=== PATIENT | female | born 1980 | race Caucasian/White ===

== ENCOUNTER 2016-06-19 21:03 | Emergency (ER) | payer BC ==
--- NOTE | 2016-06-19 21:10 | PDOC ---
[id number] is a 35 year old female with a past medical hx of anxiety who presents to the ED via EMS for evaluation of 1 episode of seizure-like activity at 19:30 this evening. Per patient's friend, she went to get food out of the refrigerator when her eyes rolled into the back of her head and she started to have body tremors. The friend reports she caught her as she was falling to the ground and notes she turned blue and was unconscious. The patient's friend states she was unconscious for approximately 30 seconds. The friend notes she then called 911. The patient reports the last thing she remembers was being in the kitchen. She does not remember this episode of seizure like activity and recalls she felt very nauseous afterwards. She states she then vomited up her dinner. The patient reports she was in her usual state of health up until this evening. She denies any recent fever, nausea, diarrhea prior to this episode. The patient reports she has some waves of nausea but otherwise feels completely fine while in the ED. The patient denies chest pain, SOB, abdominal pain, headache <Minerva Shah - Last Filed: 06/19/16 21:49> <Shirley Londono - Last Filed: 06/20/16 06:40> - General Chief Complaint: Seizure Stated Complaint: SEIZURE Time Seen by Provider: 06/19/16 21:10 Past History <Minerva Shah - Last Filed: 06/19/16 21:49> - Past Medical History Anemia: No Asthma: No Cancer: No HTN: No Psychiatric Problems: Yes - Surgical History Abdominal Surgery: No Appendectomy: No Cardiac Surgery: No - Psycho/Social/Smoking Cessation Hx Anxiety: No Suicidal Ideation: No Smoking History: Former smoker Have you smoked in the past 12 months: Yes Number of Cigarettes Smoked Daily: 1 If you are a former smoker, when did you quit?: 1 YEAR AGO 'Breaking Loose' booklet given: 12/05/15 Hx Alcohol Use: No Drug/Substance Use Hx: No Substance Use Type: None <Shirley Londono - Last Filed: 06/20/16 06:40> - Past Medical History Allergies/Adverse Reactions: Allergies Allergy/AdvReac Type Severity Reaction Status Date / Time No Known Allergies Allergy Verified 06/19/16 21:06 Home Medications: Ambulatory Orders Fluoxetine HCl [Prozac -] 40 mg PO DAILY 12/12/14 Alprazolam [Xanax] 1 mg PO PRN PRN 06/19/16 Review of Systems - Review of Systems Able to Perform ROS?: Yes Comments:: 06/19/16 21:49 CONSTITUTIONAL: Absent: fever, no chills, no fatigue EYES: Absent: visual changes ENT: Absent: ear pain, no sore throat CARDIOVASCULAR: Absent: chest pain, no palpitations RESPIRATORY: Absent: cough, no SOB GI: Absent: abdominal pain, no nausea, no vomiting, no constipation, no diarrhea GENITOURINARY: Absent: dysuria, no frequency, no hematuria MUSCULOSKELETAL: Absent: back pain, no arthralgia, no myalgia SKIN: Absent: rash NEURO: +Loss of consciousness, seizure. Absent: headache <Minerva Shah - Last Filed: 06/19/16 21:49> *Physical Exam - Vital Signs Last Vital Signs Temp Pulse Resp BP Pulse Ox 97.9 F 82 18 137/91 100 06/19/16 21:10 06/19/16 21:10 06/19/16 21:10 06/19/16 21:10 06/19/16 21:10 <Minerva Shah - Last Filed: 06/19/16 21:49> - Physical Exam Comments: GENERAL: The patient is awake, alert, and fully oriented, in no acute distress. Vital signs as noted. HEAD: Normal with no signs of trauma. EYES: Pupils equal, round and reactive to light, extraocular movements intact, sclera anicteric, conjunctiva clear with no pallor. ENT: Dry mucous membranes. No evidence of tongue or other oral trauma; Ears normal, nares patent, oropharynx clear without exudates. NECK: Normal range of motion, supple without lymphadenopathy, JVD, or masses. LUNGS: Breath sounds equal, clear to auscultation bilaterally. No wheeze/ crackles. HEART: Regular rate and rhythm, normal S1 and S2 without murmur or rub. ABDOMEN: Soft/nontender/nondistended. BS wnl. No guarding or rebound. No palpable masses. No hepatosplenomegaly. EXTREMITIES: Normal range of motion, no edema. No clubbing or cyanosis. No cords, erythema, or tenderness. NEUROLOGICAL: Cranial nerves II through XII grossly intact. Motor 5/5; no sensory deficits; finger to nose normal. Normal speech, normal gait. PSYCH: Normal mood, normal affect. SKIN: Warm, Dry, normal turgor, no rashes or lesions noted. <Shirley Londono - Last Filed: 06/20/16 06:40> ED Treatment Course - LABORATORY CBC & Chemistry Diagram: 06/19/16 21:55 06/19/16 21:55 <Shirley Londono - Last Filed: 06/20/16 06:40> Medical Decision Making - Medical Decision Making Documentation has been prepared under my direction and personally reviewed by me in its entirety. I attest that this documented accurately reflects all work, treatment, procedures and medical decision making performed by me. As noted above, is 35-year-old woman with a history of anxiety/depression is brought into the emergency room by a family/friends with history of apparent generalized seizure. Patient has no previous history of seizure activity. According to the patient's friend, as the patient was standing in her kitchen, she fell backwards and had tonic-clonic movements; this lasted approximately 30 seconds and patient was semiconscious for some time after this. She had no incontinence and did not injure herself obviously during the seizure. The patient has no recall of this; she recalls feeling nauseated and vomiting similar digested food after the episode. According to family/friends, 911 was called and patient became alarmed when firefighters arrived, not recognizing that they were first responders to the medical call. According to the patient, she was unaware that her friend called 911 and she had a panic attack, thinking the firefighters were intruders. EMS then arrived and suggested that patient be transported to the hospital but she refused. Family/friends persuaded patient to come to the hospital for evaluation. She is currently alert, oriented and calm, expressing no complaints. Patient states that she is on Prozac daily and believes she has taken in the last 24 hours. She also has been prescribed Adderall by her psychiatrist, Dr. Yung Stephenson ([place]). She has taken her Adderall today. She denies taking any other medications or recreational drugs. There has been no alcohol use and denies any new supplements or vitamins. Patient denies any suicidal/homicidal ideation She states she is under some increased stress recently since she is breaking up with her boyfriend and has an 11 month old child at home Physical exam as noted above. Noncontrast head CT shows no abnormality; no evidence of acute bleed/masses/ contusion or fracture. Laboratory evaluation notable for white blood cell count of 18,500; patient states that she has history of having elevated WBC count; when she was seen here in March 2016 with gastroenteritis, WBC count was 32,000. There is evidence for mild prerenal azotemia with BUN of 17 and a creatinine of 0.7. 1 L normal saline intravenously was given to the patient during her stay here in the ER. Urine tox screen shows positive opiate; all other entities are negative. Patient was asked about this; she denies any narcotic use. Clinical presentation most consistent with apparent generalized seizure activity of unclear etiology. During the patient's time here she was completely asymptomatic with clear sensorium. Since there is no evidence of etiology requiring inpatient treatment, the patient will be discharged. She should follow-up in the very near future (within 2-3 days) with neurology.She should refrain from driving until seen by neurologist. She has no previous neurologist and referral information for Dr. Licea was given to her. She should also contact her psychiatrist and follow-up within the next several days. Patient also has a general doctor in [facility] whom she should see within the next week. Meanwhile, she should return to the emergency room if she has any fever/headache or neck pain/further seizure activity 06/20/16 06:39 <Shirley Londono - Last Filed: 06/20/16 06:40> *DC/Admit/Observation/Transfer - Attestations Scribe Attestion: 06/19/16 21:50 Documentation prepared by Minerva Shah, acting as emergency medical services coordinator for Shirley Londono MD/DO. <Minerva Shah - Last Filed: 06/19/16 21:49> <Shirley Londono - Last Filed: 06/20/16 06:40> Diagnosis at time of Disposition: New onset seizure - Discharge Dispostion Disposition: HOME Condition at time of disposition: Stable - Referrals Referrals: Chapin Licea MD [Staff Physician] - 2 Days - Patient Instructions Printed Discharge Instructions: DI for Seizure Disorder -- Adult Additional Instructions: rest, avoid strenuous activity until seen by neurologist drink plenty of water followup with Dr Licea(Neurology group) within 2-3 days followup with your general doctor as discussed continue medication as prescribed return to ER as needed
[2016-06-19 21:14] VITALS: BP 137/91; PULSE 82; TEMP 97.9; BMI 22.2
[2016-06-19] MEDS ORDERED: ACETAMINOPHEN 325 MG TABLET (FP) ONE (22:10)
[2016-06-19] MEDS ORDERED: SODIUM CHLORIDE 1,000 ML IV STA (22:10)
[2016-06-19 22:17] LABS: BASOPHIL 0.3 % (0-2.0); EOSINOPHIL 0.7 % (0-4.5); MCH 30.4 pg (25.7-33.7); MCHC 35.8 g/dl (32.0-36.0); MEAN PLT VOLUME 7.7 fl (7.5-11.1); NEUTROPHILS 86.4 % (42.8-82.8); PLATELET COUNT 325 K/MM3 (134-434); RDW 11.8 % (11.6-15.6); WHITE BLOOD COUNT 18.5 K/mm3 (4.0-10.0)
[2016-06-19 22:23] LABS: ALBUMIN 4.5 g/dl (3.5-5.0); ALK PHOS 44 U/L (32-92); ANION GAP 8 (8-16); BILIRUBIN,TOTAL 0.3 mg/dl (0.2-1.0); CALCIUM 9.4 mg/dl (8.4-10.2); CO2 27 mmol/L (22-28); CREATININE 0.7 mg/dl (0.6-1.3); GLUCOSE,RANDOM 106 mg/dl (74-106); SGOT/AST 16 U/L (10-42); SGPT/ALT 14 U/L (10-40); TOT PROT 7.1 g/dl (6.4-8.3)
[2016-06-19 22:54] LABS: PH,URINE 5.5 (4.5-8); URINE APPEARANCE Clear; URINE BILIRUBIN Negative (NEGATIVE); URINE BLOOD Trace-intact (NEGATIVE); URINE GLUCOSE (UA) Negative (NEGATIVE); URINE KETONE 2+ (NEGATIVE); URINE LEUK ESTERASE Negative (NEGATIVE); URINE NITRITE Negative (NEGATIVE); URINE PROTEIN Trace (NEGATIVE); URINE UROBILINOGEN 0.2 E.U/dl (0.2-1.0)
[2016-06-19 22:55] LABS: URINE COLOR YELLOW
[2016-06-19] MEDS ORDERED: LOPERAMIDE HCL 2 MG CAPSULE PO ONE (23:35)
[2016-06-20 00:11] LABS: URINE MARIJUANA THC NEGATIVE ng/ml (CUTOFF=50)
== END 2016-06-20 00:29 | disposition home or self-care (01) ==
LOC: FER 21:03
PROC: 3E0337Z Introduction of Electrolytic and Water Balance Substance into Peripheral Vein, Percutaneous Approach (ICD-10-PCS; principal; 2016-06-19)
DX: G40.89 Other seizures (principal); Z87.891 Personal history of nicotine dependence; F41.9 Anxiety disorder, unspecified
CPT/HCPCS: 36415; 70450-TC; 80053; 80307; 81003; 84703; 85025; 99283-25

== ENCOUNTER 2016-10-11 11:48 | Emergency (ER) | payer BC ==
--- NOTE | 2016-10-11 11:56 | PDOC ---
History of Present Illness - General Chief Complaint: Pain, Acute Stated Complaint: LOWER ABDOMINAL PAIN Time Seen by Provider: 10/11/16 11:54 History Source: Patient, Old Records Exam Limitations: No Limitations - History of Present Illness Initial Comments: 10/11/16 12:09 35-year-old female with history of depression presents to the emergency department with 2 day history of left lower quadrant pain and fever. The patient describes the pain is sharp and constant that is worse when she moves and sits forward. She has never had this pain before. Her fever has been as high as 10 2F and she is taken ibuprofen at 11 AM this morning. She denies dysuria, hematuria, increased urinary frequency. She denies vaginal discharge or bleeding. Her last menstrual period was 2 weeks ago. She denies nausea, vomiting, diarrhea. She has a nonproductive cough. Past History - Past Medical History Allergies/Adverse Reactions: Allergies Allergy/AdvReac Type Severity Reaction Status Date / Time No Known Allergies Allergy Verified 06/19/16 21:06 Home Medications: Ambulatory Orders Fluoxetine HCl [Prozac -] 40 mg PO DAILY 12/12/14 Alprazolam [Xanax] 1 mg PO PRN PRN 06/19/16 Anemia: No Asthma: No Cancer: No HTN: No Psychiatric Problems: Yes - Surgical History Abdominal Surgery: No Appendectomy: No Cardiac Surgery: No - Psycho/Social/Smoking Cessation Hx Anxiety: No Suicidal Ideation: No Smoking History: Former smoker Have you smoked in the past 12 months: Yes Number of Cigarettes Smoked Daily: 1 If you are a former smoker, when did you quit?: 1 YEAR AGO 'Breaking Loose' booklet given: 12/05/15 Hx Alcohol Use: No Drug/Substance Use Hx: No Substance Use Type: None Review of Systems - Review of Systems Able to Perform ROS?: Yes Is the patient limited Somali proficient: No Constitutional: Yes: Symptoms Reported, See HPI, Fever HEENTM: No: Symptoms Reported Respiratory: Yes: Cough Cardiac (ROS): No: Symptoms Reported ABD/GI: Yes: See HPI : No: Symptoms Reported Musculoskeletal: No: Symptoms Reported Integumentary: No: Symptoms Reported *Physical Exam - Physical Exam Comments: 10/11/16 12:12 GENERAL: Well developed, well nourished. Awake and alert. No acute distress. HEENT: Normocephalic, atraumatic. PERRLA, EOMI. No conjunctival pallor. Sclera are non- icteric. Moist mucous membranes. Oropharynx is clear. NECK: Supple. Full ROM. No JVD. No lymphadenopathy. CARDIOVASCULAR: Tachycardic and regular. No murmurs, rubs, or gallops. Distal pulses are 2+ and symmetric. PULMONARY: No evidence of respiratory distress. Lungs clear to auscultation bilaterally. No wheezing, rales or rhonchi. ABDOMINAL: Soft. Non-tender. Non-distended. No rebound or guarding. No organomegaly. Normoactive bowel sounds. MUSCULOSKELETAL Normal range of motion at all joints. No bony deformities or tenderness. No CVA tenderness. EXTREMITIES: No cyanosis. No clubbing. No edema. No calf tenderness. SKIN: Warm and dry. Normal capillary refill. No rashes. No jaundice. NEUROLOGICAL: Alert, awake, appropriate. Cranial nerves 2-12 intact. Grossly non-focal exam. PSYCHIATRIC: Cooperative. Good eye contact. Appropriate mood and affect. PELVIC: external genitalia is unremarkable. Speculum exam reveals an IUD string. There is no vaginal discharge or bleeding. Bimanual exam is significant for left suprapubic tenderness but no CMT. ED Treatment Course - LABORATORY CBC & Chemistry Diagram: 10/11/16 12:20 10/11/16 12:20 Medical Decision Making - Medical Decision Making 10/11/16 12:11 35-year-old female with h/o depression presents to the emergency Department with complaints of left lower quadrant pain and fever since yesterday. She is febrile in the emergency department Differential diagnosis includes but is not limited to: Early pyelonephritis, urinary tract infection, infected kidney stone , diverticulitis/diverticulosis, ovarian torsion. Plan: 1. Labs 2. Urine analysis 3. IV fluids for hydration 4. Pelvic ultrasound 5. Observe and reevaluate 10/11/16 17:04 Addendum: All labs were reviewed and are noted in the EMR. The urine analysis had 2 red blood cells but no nitrites or leukoesterase. The white blood cell count was normal. I reevaluated the patient and found that she continued to have lower abdominal tenderness on the left is quadrant therefore a pelvic ultrasound was performed which was normal. Because the patient continued to have pain I obtained a CT scan of the abdomen and pelvis without contrast that showed questionable concentric thickening of the sigmoid colon in the left lower abdomen. The patient is hungry and wants to eat. She is now afebrile and is feeling improved. If she tolerates food I will discharge her home and have advised her to follow-up with her primary care physician. I've also advised to return to the emergency department if her symptoms persist, worsen, or new symptoms arise. *DC/Admit/Observation/Transfer Diagnosis at time of Disposition: LLQ pain, Fever - Discharge Dispostion Disposition: HOME Condition at time of disposition: Stable Admit: No - Patient Instructions Printed Discharge Instructions: DI for Abdominal Pain-Adult Additional Instructions: Please follow-up with your primary care physician. He may take ibuprofen or Tylenol as needed for fever or pain. Return to the emergency department if your symptoms persist, worsen, or new symptoms arise.
[2016-10-11] MEDS ORDERED: ACETAMINOPHEN 325 MG TABLET (FP) PO ONE (12:02)
[2016-10-11] MEDS ORDERED: SODIUM CHLORIDE 1,000 ML IV STA ×2 (12:02→13:21)
[2016-10-11] MEDS ORDERED: ONDANSETRON 4 MG/2 ML VIAL IVPUSH ONE (12:02)
[2016-10-11 12:08] VITALS: BMI 21.2
[2016-10-11 12:43] LABS: BASOPHIL 2.7 % (0-2.0); EOSINOPHIL 0.8 % (0-4.5); MEAN CELL VOLUME 86.3 fl (80-96); MEAN PLT VOLUME 7.6 fl (7.5-11.1); NEUTROPHILS 80.2 % (42.8-82.8); PLATELET COUNT 264 K/MM3 (134-434); RDW 12.3 % (11.6-15.6); WHITE BLOOD COUNT 7.6 K/mm3 (4.0-10.8)
[2016-10-11 13:23] LABS: ALBUMIN 3.8 g/dl (3.5-5.0); ALK PHOS 44 U/L (32-92); ANION GAP 7 (8-16); BILIRUBIN,TOTAL 0.5 mg/dl (0.2-1.0); CALCIUM 8.7 mg/dl (8.4-10.2); CO2 24 mmol/L (22-28); CREATININE 0.7 mg/dl (0.6-1.3); GLUCOSE,RANDOM 124 mg/dl (74-106); MAGNESIUM 1.6 mg/dL (1.8-2.4); PHOSPHOROUS 2.9 mg/dl (2.5-4.6); SGOT/AST 17 U/L (10-42); SGPT/ALT 15 U/L (10-40); TOT PROT 6.5 g/dl (6.4-8.3)
[2016-10-11] MEDS ORDERED: KETOROLAC TROMETHAMINE 30 MG/1 ML VIAL IVPUSH ONE (13:28)
[2016-10-11] MEDS ORDERED: KETOROLAC TROMETHAMINE 30 MG/1 ML VIAL ONE (13:34)
[2016-10-11 13:44] LABS: URINE APPEARANCE Clear; URINE BILIRUBIN Negative (NEGATIVE); URINE GLUCOSE (UA) Negative (NEGATIVE); URINE KETONE Negative (NEGATIVE); URINE LEUK ESTERASE Negative (NEGATIVE); URINE NITRITE Negative (NEGATIVE); URINE PROTEIN Trace (NEGATIVE); URINE UROBILINOGEN 0.2 E.U/dl (0.2-1.0)
[2016-10-11 13:49] LABS: URINE BLOOD 2+ (NEGATIVE); URINE COLOR YELLOW
[2016-10-11 15:01] LABS: URINE WBC 0-2 (3-5)
[2016-10-11 15:03] LABS: URINE MUCUS 1+
[2016-10-11 17:14] VITALS: BP 106/66; PULSE 90; TEMP 98.1
== END 2016-10-11 17:29 | disposition home or self-care (01) ==
LOC: FER 11:48
PROC: 3E0333Z Introduction of Anti-inflammatory into Peripheral Vein, Percutaneous Approach (ICD-10-PCS; principal; 2016-10-11)
PROC: 3E033GC Introduction of Other Therapeutic Substance into Peripheral Vein, Percutaneous Approach (ICD-10-PCS; 2016-10-11)
PROC: 3E0337Z Introduction of Electrolytic and Water Balance Substance into Peripheral Vein, Percutaneous Approach (ICD-10-PCS; 2016-10-11)
DX: R10.32 Left lower quadrant pain (principal); R50.9 Fever, unspecified; F32.9 Major depressive disorder, single episode, unspecified
CPT/HCPCS: 36415; 74176-TC; 76830-TC; 80053; 81003; 81015; 83690; 83735; 84100; 84703; 85025; 87086; 99283-25

== ENCOUNTER 2019-03-20 18:44 | Emergency (ER) | payer BC ==
[2019-03-20 18:55] VITALS: BP 102/67; PULSE 89; TEMP 98.1; BMI 24.2
[2019-03-20] MEDS ORDERED: ONDANSETRON 4 MG/2 ML VIAL IVPB ONE (19:22)
[2019-03-20] MEDS ORDERED: SODIUM CHLORIDE 1,000 ML IV ONE ×3 (19:22→21:27)
[2019-03-20] MEDS ORDERED: ACETAMINOPHEN 1000 MG/100 ML VIAL (NON FORMULARY) IVPB ONE (19:23)
[2019-03-20] MEDS ORDERED: ONDANSETRON 4 MG/2 ML VIAL ONE (19:41)
[2019-03-20] MEDS ORDERED: ACETAMINOPHEN INJECTION 100 ML IVPB ONE (19:41)
[2019-03-20 19:52] LABS: BASO % 0.4 % (0-2.0); EOS % 3.7 % (0-4.5); HEMOGLOBIN 13.2 GM/dl (10.7-15.3); LYMPH % 21.8 % (8-40); MCH 29.9 pg (25.7-33.7); MEAN CELL VOLUME 88.1 fl (80-96); MEAN PLT VOLUME 7.2 fl (7.5-11.1); MONO % 6.6 % (3.8-10.2); NEUT % 67.5 % (42.8-82.8); PLATELET COUNT 349 K/MM3 (134-434); RBC 4.42 M/mm3 (3.60-5.2); RDW 11.1 % (11.6-15.6); WHITE BLOOD COUNT 5.7 K/mm3 (4.0-10.8)
[2019-03-20 20:02] LABS: ALBUMIN 3.6 g/dl (3.4-5.0); BILIRUBIN,TOTAL 0.2 mg/dl (0.2-1); CALCIUM 8.4 mg/dl (8.5-10); CREATININE 0.7 mg/dl (0.55-1.3); POTASSIUM 3.3 mmol/L (3.5-5.1); TOT PROT 6.3 g/dl (6.4-8.2)
--- NOTE | 2019-03-20 20:26 | PDOC ---
Documentation entered by Khushbu Ramos SCRIBE, acting as scribe for Mansoor Stover MD. Mansoor Stover MD: This documentation has been prepared by the [email or web address], Khushbu Ramos SCRIBE, under my direction and personally reviewed by me in its entirety. I confirm that the documentation accurately reflects all work , treatment, procedures, and medical decision making performed by me. History of Present Illness - General Chief Complaint: Vomiting/Diarrhea Stated Complaint: VOMITING/DIARRHEA Time Seen by Provider: 03/20/19 19:07 History Source: Patient Exam Limitations: No Limitations - History of Present Illness Initial Comments: 03/20/19 19:37 The patient is a 38-year-old female who presents to the emergency department with 3 days of nausea, vomiting, and diarrhea. The patient reports on Tuesday she had an onset of nausea, vomiting, diarrhea, and a fever, which carried onto Tuesday, without relief. The patient reports today she had episodes of diarrhea, but denies vomiting or fever. The patient reports associated symptoms of fatigue , decreased PO intake, decreased urine output, nausea, and a headache. Denies recent travel. Denies sick contact, but the patient reports her father currently has similar symptoms. 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 MEDICATIONS: reviewed ALLERGIES: As per nursing notes Review of system: General: +fatigue. No fevers or chills, no weakness, no weight loss HEENT: No change in vision. No sore throat,. No ear pain CardioVascular: No chest pain or shortness of breath Respiratory:No cough, or wheezing. Gastrointestinal: +nausea, diarrhea, and abdominal pain. Decreased PO intake. No vomiting today or constipation. No rectal bleeding. Genitourinary: +decreased urine output. No dysuria, hematuria, or frequency Musculoskeletal: No joint or muscle pain or swelling Neurologic: +headache. No vertigo, dizziness or loss of consciousness Psychiatric: nor depression Skin: No rashes or easy bruising Endocrine: no increased thirst or abnormal weight change Allergic: no skin or latex allergy All other systems reviewed and normal Physical exam: General: Well-nourished well-developed individual, no acute distress HEENT: Throat: Normal, tonsils normal, no erythema or exudate Neck: Supple, no meningeal signs, no lymphadenopathy Eyes :Pupils equal reactive and round, extraocular motion intact Chest: Nontender to palpation Cardiac: S1-S2 normal, regular rate and rhythm, no murmurs rubs or gallops Respiratory: Lungs clear to auscultation bilateral Abdomen: +Mild tenderness on palpation of the periumbilical, no guarding or rebound. Extremities: Warm, dry, no cyanosis, clubbing, or edema Skin: No rashes Neuro: Alert and oriented x3, nonfocal exam, grossly intact, normal gait Psych: Normal mood and affect 03/20/19 19:46 03/20/19 20:23 Assessment and plan: This is a 38-year-old female who comes in complaining of nausea vomiting and diarrhea. Patient had fever initially with nausea and vomiting and diarrhea however today is only had diarrhea. Patient comes in because she feels very dehydrated. Patient symptoms are improving with time. Patient clinically looks dry. Patient will be hydrated and basic labs sent CBC and comp. Patient's blood work was normal, she feels much better was able to walk to the bathroom and urinate at 2200 hrs. Patient given a p.o. challenge no further vomiting Patient discharged home will follow-up with her primary care doctor Past History - Past Medical History Allergies/Adverse Reactions: Allergies Allergy/AdvReac Type Severity Reaction Status Date / Time No Known Allergies Allergy Verified 03/20/19 18:45 Home Medications: Ambulatory Orders Fluoxetine HCl [Prozac -] 80 mg PO DAILY 12/12/14 Dexmethylphenidate HCl [Focalin] 10 mg PO DAILY 03/20/19 Gabapentin [Neurontin] 900 mg PO DAILY 03/20/19 Lurasidone HCl [Latuda] 20 mg PO DAILY 03/20/19 Ondansetron [Zofran *Odt*] 8 mg SL TID #12 od.tablet 03/20/19 Anemia: No Asthma: No Cancer: No COPD: No HTN: No Psychiatric Problems: Yes - Surgical History Abdominal Surgery: No Appendectomy: No Cardiac Surgery: No - Reproductive History (#): 1 Para: 1 - Psycho Social/Smoking Cessation Hx Smoking History: Never smoked Have you smoked in the past 12 months: Yes Number of Cigarettes Smoked Daily: 1 If you are a former smoker, when did you quit?: 1 YEAR AGO 'Breaking Loose' booklet given: 12/05/15 Hx Alcohol Use: Yes (OCASIONAL) Drug/Substance Use Hx: No Substance Use Type: None *Physical Exam - Vital Signs Last Vital Signs Temp Pulse Resp BP Pulse Ox 98.1 F 89 18 102/67 98 03/20/19 18:45 03/20/19 18:45 03/20/19 18:45 03/20/19 18:45 03/20/19 18:45 ED Treatment Course - LABORATORY CBC & Chemistry Diagram: 03/20/19 19:40 03/20/19 19:40 - ADDITIONAL ORDERS Additional order review: Laboratory Results 03/20/19 03/20/19 19:40 19:40 Sodium 138 Potassium 3.3 L Chloride 105 Carbon Dioxide 28 Anion Gap 5 L BUN 16.0 Creatinine 0.7 Est GFR (CKD-EPI)AfAm 129.19 Est GFR (CKD-EPI)NonAf 111.47 Random Glucose 94 Calcium 8.4 L Magnesium 2.0 Total Bilirubin 0.2 AST 20 ALT 19 Alkaline Phosphatase 53 Total Protein 6.3 L Albumin 3.6 03/20/19 19:40 RBC 4.42 MCV 88.1 MCHC 34.0 RDW 11.1 L MPV 7.2 L Neutrophils % 67.5 Lymphocytes % 21.8 Monocytes % 6.6 Eosinophils % 3.7 Basophils % 0.4 - Medications Given in the ED: ED Medications Discontinued Medications Generic Name Dose Route Start Last Admin Trade Name Freq PRN Reason Stop Dose Admin Acetaminophen 1,000 mg 03/20/19 19:23 03/20/19 19:56 Ofirmev Injection - IVPB 03/20/19 19:24 1,000 mg ONCE ONE Administration Sodium Chloride 1,000 mls @ 1,000 mls/hr 03/20/19 19:22 03/20/19 19:39 Normal Saline - IV 03/20/19 20:21 1,000 mls/hr .Q1H ONE Administration Ondansetron HCl 8 mg 03/20/19 19:22 03/20/19 19:46 Zofran Injection IVPB 03/20/19 19:23 8 mg ONCE ONE Administration Discharge - Discharge Information Problems reviewed: Yes Clinical Impression/Diagnosis: Nausea vomiting and diarrhea Condition: Stable Disposition: HOME - Admission No - Additional Discharge Information Prescriptions: Ondansetron [Zofran *Odt*] 8 mg SL TID #12 od.tablet - Follow up/Referral - Patient Discharge Instructions Additional Instructions: Clear liquids only for the next 6 hours.. After that if you have had no further vomiting you may have bananas, rice, applesauce, or toast. If no further vomiting for another 8 hours you may have regular food. If you vomit again then nothing to eat or drink for 2 hours. then start back with the clear liquids. Return to the emergency department immediately with ANY new, persistent or worsening symptoms. You MUST call and follow up with your doctor tomorrow if not better. Please make sure your doctor reviews the results of your emergency evaluation. Return to the emergency department immediately with ANY new, persistent or worsening symptoms. Continue any medications as previously prescribed by your physician. . Please make sure your doctor reviews the results of your emergency evaluation. Thank you for coming to the Emergency Department today for your care. It was a pleasure to see you today. Please note that your evaluation is INCOMPLETE until you follow-up with your doctor. - Post Discharge Activity
[2019-03-20] MEDS ORDERED: POTASSIUM CHLORIDE TABS 20 MEQ TABLET.ER (FP) PO ONE ×2 (21:17→21:21)
== END 2019-03-20 22:32 | disposition home or self-care (01) ==
LOC: FER 18:44
PROC: 3E033NZ Introduction of Analgesics, Hypnotics, Sedatives into Peripheral Vein, Percutaneous Approach (ICD-10-PCS; principal; 2019-03-20)
PROC: 3E033GC Introduction of Other Therapeutic Substance into Peripheral Vein, Percutaneous Approach (ICD-10-PCS; 2019-03-20)
PROC: 3E0337Z Introduction of Electrolytic and Water Balance Substance into Peripheral Vein, Percutaneous Approach (ICD-10-PCS; 2019-03-20)
DX: R11.2 Nausea with vomiting, unspecified (principal); R19.7 Diarrhea, unspecified; Z87.891 Personal history of nicotine dependence; F99 Mental disorder, not otherwise specified
CPT/HCPCS: 36415; 80053; 83690; 83735; 85025; 99282-25; J0131; J7030

== ENCOUNTER 2019-04-18 14:06 | Emergency (ER) | payer BC ==
[2019-04-18 14:32] VITALS: BMI 24.2
[2019-04-18] MEDS ORDERED: ONDANSETRON 4 MG/2 ML VIAL IVPUSH ONE (14:55)
[2019-04-18] MEDS ORDERED: SODIUM CHLORIDE 1,000 ML IV STA ×2 (14:55→16:35)
--- NOTE | 2019-04-18 14:55 | PDOC ---
History of Present Illness - General Chief Complaint: Cold Symptoms Stated Complaint: I HAVE THE FLU Time Seen by Provider: 04/18/19 14:31 History Source: Patient Exam Limitations: No Limitations - History of Present Illness Initial Comments: 04/18/19 14:58 38 yo F with no past medical history presenting to the emergency department with worsening flu symptoms since diagnosis. 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 She states since then she used tamiflu which worsened her nausea and has had vomiting episodes daily with difficulty retaining fluids. Per the patient, she has diffuse body aches and endorses the following: fevers, nausea, headache, and throat pain. Last took tylenol 1 gram at 10 am. She was advised by her employer (the ENT physician) to present to the emergency department for rehydration. Denies the following: chest pain, SOB, abdominal pain, dysuria, hematuria, diarrhea, constipation, hematochezia, and leg swelling. Allergies: NKDA Past History - Past Medical History Allergies/Adverse Reactions: Allergies Allergy/AdvReac Type Severity Reaction Status Date / Time No Known Allergies Allergy Verified 04/18/19 14:33 Home Medications: Ambulatory Orders Fluoxetine HCl [Prozac -] 80 mg PO DAILY 12/12/14 Dexmethylphenidate HCl [Focalin] 10 mg PO DAILY 03/20/19 Gabapentin [Neurontin] 300 mg PO TID 03/20/19 Lurasidone HCl [Latuda] 20 mg PO DAILY 03/20/19 Ondansetron [Zofran *Odt*] 4 mg SL TID PRN #15 od.tablet 04/18/19 Anemia: No Asthma: No Cancer: No COPD: No HTN: No Psychiatric Problems: Yes - Surgical History Abdominal Surgery: No Appendectomy: No Cardiac Surgery: No - Reproductive History (#): 1 Para: 1 - Psycho Social/Smoking Cessation Hx Smoking History: Former smoker Have you smoked in the past 12 months: Yes Number of Cigarettes Smoked Daily: 1 If you are a former smoker, when did you quit?: 1 YEAR AGO Information on smoking cessation initiated: No 'Breaking Loose' booklet given: 12/05/15 Hx Alcohol Use: No Drug/Substance Use Hx: No Substance Use Type: None Review of Systems - Review of Systems Able to Perform ROS?: Yes Is the patient limited Hebrew proficient: No Constitutional: Yes: Fever, Malaise, Weakness. No: Chills, Diaphoresis HEENTM: Yes: Ear Pain (right ear pain), Throat Pain. No: Eye Pain, Nose Pain, Mouth Pain Respiratory: No: Cough, Shortness of Breath, Wheezing, Hemoptysis Cardiac (ROS): No: Chest Pain, Lightheadedness, Palpitations, Syncope, Chest Tightness ABD/GI: Yes: Nausea, Poor Appetite, Poor Fluid Intake, Vomiting. No: Constipated, Diarrhea, Rectal Bleeding, Indigestion, Tarry Stools : No: Burning, Dysuria, Pain Musculoskeletal: Yes: Muscle Pain. No: Gout Integumentary: No: Bruising, Flushing, Lumps, Rash Neurological: Yes: Headache Psychiatric: No: Stressors Endocrine: No: Unexplained Weight Loss Hematologic/Lymphatic: No: Anemia *Physical Exam - Vital Signs Last Vital Signs Temp Pulse Resp BP Pulse Ox 99.3 F 102 H 17 98/64 97 04/18/19 14:06 04/18/19 14:06 04/18/19 14:06 04/18/19 14:06 04/18/19 14:06 - Physical Exam General Appearance: Yes: Nourished, Appropriately Dressed. No: Apparent Distress, Intoxicated HEENT: positive: EOMI, DAVI Discharge - Discharge Information Problems reviewed: Yes Clinical Impression/Diagnosis: Influenza Condition: Stable Disposition: HOME - Admission No - Additional Discharge Information Prescriptions: Ondansetron [Zofran *Odt*] 4 mg SL TID PRN #15 od.tablet PRN Reason: Nausea And/Or Vomiting - Follow up/Referral Referrals: [facility] [place] [facility] [Provider Group] - Patient Discharge Instructions Patient Printed Discharge Instructions: How to Avoid a Cold or Flu, DI for Viral Upper Respiratory Infection -- Adult, DI for Influenza -- Adult Additional Instructions: You were seen in the emergency department for the evaluation of your influenza. You were rehydrated and had symptom improvement. Please return to the emergency department if you have worsening symptoms or new concerning symptoms such as altered mental status, shortness of breath or difficulty with breathing, lethargy, and debilitating muscle/bone pain. Thank you. please take the medication as prescribed. please see your primary medical doctor within 1 week after discharge for follow up care and management. - Post Discharge Activity Work/Back to School Note: Back to Work
[2019-04-18] MEDS ORDERED: ACETAMINOPHEN 325 MG TABLET (FP) PO ONE (14:57)
[2019-04-18] MEDS ORDERED: ACETAMINOPHEN 325 MG TABLET (FP) ONE (15:27)
[2019-04-18] MEDS ORDERED: ONDANSETRON 4 MG/2 ML VIAL ONE (15:27)
--- NOTE | 2019-04-18 16:15 | PDOC ---
Attending Attestation - Resident Resident Name: MushtaqTravon - ED Attending Attestation I have performed the following: I have examined & evaluated the patient, The case was reviewed & discussed with the resident, I agree w/resident's findings & plan, Exceptions are as noted - HPI HPI: 04/18/19 17:36 Patient with flu symptoms including sore throat, nonproductive cough, and nausea. Positive flu swab several days ago, begun on Tamiflu, but discontinued after 2 days due to side effects. Nausea is the most troublesome symptom and it has persisted. Fever has resolved. No vomiting or diarrhea. - Physicial Exam PE: 04/18/19 17:36 Physical exam: Well-developed no acute distress cooperative Afebrile vital signs normal HEENT clear Neck supple without bruit mass or nodes Lungs clear CV regular without murmur rub or gallop Abdomen benign Skin with adequate turgor, wet mucous membranes - Medical Decision Making 04/18/19 17:37 Assessment: Influenza, resolving, but with persistent nausea, probably inadequate oral intake Plan: IV fluids and antiemetic. After treatment, patient much improved. Discharge fully ambulatory and in no distress, to use Zofran as needed, oral hydration, and follow-up.
[2019-04-18 17:16] VITALS: BP 100/62; PULSE 97
[2019-04-18 17:39] VITALS: TEMP 98.4
== END 2019-04-18 17:43 | disposition home or self-care (01) ==
LOC: FER 14:06
PROC: 3E033GC Introduction of Other Therapeutic Substance into Peripheral Vein, Percutaneous Approach (ICD-10-PCS; principal; 2019-04-18)
PROC: 3E0337Z Introduction of Electrolytic and Water Balance Substance into Peripheral Vein, Percutaneous Approach (ICD-10-PCS; 2019-04-18)
DX: J11.1 Influenza due to unidentified influenza virus with other respiratory manifestations (principal); F99 Mental disorder, not otherwise specified; Z87.891 Personal history of nicotine dependence
CPT/HCPCS: 99282-25; J7030

== ENCOUNTER 2019-04-20 10:28 | Emergency (ER) | payer BC ==
[2019-04-20 10:38] VITALS: BP 122/80; PULSE 79; TEMP 98.5; BMI 24.2
[2019-04-20] MEDS ORDERED: SODIUM CHLORIDE 1,000 ML IV STA ×2 (10:51→12:27)
[2019-04-20] MEDS ORDERED: ONDANSETRON 4 MG/2 ML VIAL IVPB ONE ×2 (10:51→12:52)
--- NOTE | 2019-04-20 10:57 | PDOC ---
History of Present Illness - General Chief Complaint: Respiratory Stated Complaint: "I HAVE FLU",NOT FEELING BETTER. Time Seen by Provider: 04/20/19 10:33 - History of Present Illness Initial Comments: 04/20/19 10:52 Chief complaint: Nausea vomiting and diarrhea HPI: Flu symptoms for approximately 1 week. Positive flu test. This morning fever to 101, retching, watery diarrhea. Unable to hold down food or fluids despite Zofran at home. Decreased urine production. Review of systems: No abdominal pain, productive cough, shortness of breath, chest pain, vaginal bleeding or discharge. Has an IUD. No menses since IUD insertion 4 years ago. No pelvic pain. Remainder of systems reviewed and negative Past medical history: Denies current medical or surgical problems, current medication. 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 Usually fully ambulatory without disability Family history: High blood pressure and elevated cholesterol both parents. To female siblings, healthy without medical problems Physical exam: Alert and oriented well-developed well-nourished no acute distress cooperative Afebrile, vital signs normal HEENT normal Neck supple without bruit mass or nodes Lungs clear with full breath sounds bilaterally, no wheezes rales or rhonchi. No tachypnea or dyspnea CV S1-S2 normal without murmur rub or gallop pulses full and symmetric no JVD or edema no bruits regular Abdomen nondistended. Bowel sounds normal. Soft without mass tenderness organomegaly. No CVAT Extremities no CCE Skin clear, no rash, adequate turgor and wet mucous membranes Neurological C2 to 12 intact. Strength full and symmetric. No focal sensory or motor deficits. Gait stable and unimpaired. Impression: Influenza, no improvement, nausea or retching and diarrhea, and able to hold down p.o. fluids despite oral Zofran at home Plan: UA, CBC and chemistries, intravenous fluids and intravenous Zofran, observation and further evaluation and treatment depending on results of labs and response to therapy. Past History - Past Medical History Allergies/Adverse Reactions: Allergies Allergy/AdvReac Type Severity Reaction Status Date / Time No Known Allergies Allergy Verified 04/20/19 10:30 Home Medications: Ambulatory Orders Fluoxetine HCl [Prozac -] 80 mg PO DAILY 12/12/14 Dexmethylphenidate HCl [Focalin] 10 mg PO DAILY 03/20/19 Gabapentin [Neurontin] 300 mg PO TID 03/20/19 Lurasidone HCl [Latuda] 20 mg PO DAILY 03/20/19 Ondansetron [Zofran *Odt*] 4 mg SL TID PRN #15 od.tablet 04/18/19 Anemia: No Asthma: No Cancer: No COPD: No HTN: No Psychiatric Problems: Yes - Surgical History Abdominal Surgery: No Appendectomy: No Cardiac Surgery: No - Reproductive History (#): 1 Para: 1 - Psycho Social/Smoking Cessation Hx Smoking History: Former smoker Have you smoked in the past 12 months: No Number of Cigarettes Smoked Daily: 1 If you are a former smoker, when did you quit?: 1 YEAR AGO Information on smoking cessation initiated: Yes 'Breaking Loose' booklet given: 12/05/15 Hx Alcohol Use: No Drug/Substance Use Hx: No Substance Use Type: None *Physical Exam - Vital Signs Last Vital Signs Temp Pulse Resp BP Pulse Ox 98.5 F 79 18 122/80 98 04/20/19 10:29 04/20/19 10:29 04/20/19 10:29 04/20/19 10:29 04/20/19 10:29 ED Treatment Course - LABORATORY CBC & Chemistry Diagram: 04/20/19 11:15 04/20/19 11:15 Medical Decision Making - Medical Decision Making 04/20/19 14:28 Patient appeared to be improved, but still complained of mild nausea. Some transient crampy abdominal pain was resolved. However, after visiting the restroom, she did not return to her room. She had previously pulled out her intravenous line. She is assumed to have eloped without further evaluation and treatment. Discharge - Discharge Information Problems reviewed: Yes Clinical Impression/Diagnosis: Nausea vomiting and diarrhea Condition: Stable Disposition: ELOPED - Admission No - Follow up/Referral - Patient Discharge Instructions - Post Discharge Activity
[2019-04-20] MEDS ORDERED: ONDANSETRON 4 MG/2 ML VIAL ONE ×2 (11:17→12:52)
[2019-04-20 11:28] LABS: MONO % 3.6 % (3.8-10.2)
[2019-04-20 11:31] LABS: BASO % 0.1 % (0-2.0); EOS % 1.2 % (0-4.5); HEMOGLOBIN 11.7 GM/dl (10.7-15.3); LYMPH % 15.1 % (8-40); MCHC 34.5 g/dl (32.0-36.0); MEAN CELL VOLUME 86.8 fl (80-96); MEAN PLT VOLUME 7.2 fl (7.5-11.1); PLATELET COUNT 267 K/MM3 (134-434); RBC 3.92 M/mm3 (3.60-5.2); RDW 11.6 % (11.6-15.6); WHITE BLOOD COUNT 6.5 K/mm3 (4.0-10.8)
[2019-04-20 11:58] LABS: ALBUMIN 3.2 g/dl (3.4-5.0); BILIRUBIN,TOTAL 0.3 mg/dl (0.2-1); CALCIUM 8.2 mg/dl (8.5-10); CREATININE 0.7 mg/dl (0.55-1.3); POTASSIUM 3.3 mmol/L (3.5-5.1)
[2019-04-20] MEDS ORDERED: FAMOTIDINE 20 MG/50 ML IVPB 20 MG/50 ML MG IVPB ONE ×2 (12:00→12:02)
[2019-04-20] MEDS ORDERED: ACETAMINOPHEN 1000 MG/100 ML VIAL (NON FORMULARY) IVPB ONE (12:00)
[2019-04-20] MEDS ORDERED: ACETAMINOPHEN INJECTION 100 ML IVPB ONE (12:02)
[2019-04-20] MEDS ORDERED: POTASSIUM CHLORIDE TABS 20 MEQ TABLET.ER (FP) PO ONE ×2 (12:24→12:27)
[2019-04-20 12:38] LABS: EPITHELIAL CELLS MODERATE /hpf
== END 2019-04-20 14:21 | disposition left against medical advice (07) ==
LOC: FER 10:28
PROC: 3E033NZ Introduction of Analgesics, Hypnotics, Sedatives into Peripheral Vein, Percutaneous Approach (ICD-10-PCS; principal; 2019-04-20)
PROC: 3E033GC Introduction of Other Therapeutic Substance into Peripheral Vein, Percutaneous Approach (ICD-10-PCS; 2019-04-20)
PROC: 3E0337Z Introduction of Electrolytic and Water Balance Substance into Peripheral Vein, Percutaneous Approach (ICD-10-PCS; 2019-04-20)
DX: R11.2 Nausea with vomiting, unspecified (principal); R19.7 Diarrhea, unspecified; F99 Mental disorder, not otherwise specified
CPT/HCPCS: 36415; 80053; 81003; 81015; 84703; 85025; 87086; 99283-25; 99284-25; J0131; J7030

== ENCOUNTER 2022-03-22 19:11 | Emergency (ER) | payer OTHER ==
[2022-03-22 19:17] VITALS: BP 122/85; PULSE 103; RESP 20; TEMP 98.8; BMI 26.9
[2022-03-22] MEDS ORDERED: ACETAMINOPHEN 1000 MG/100 ML BAG IVPB ONE (19:59)
[2022-03-22] MEDS ORDERED: ONDANSETRON 4 MG/2 ML VIAL IVPUSH ONE ×2 (19:59→22:33)
[2022-03-22] MEDS ORDERED: ACETAMINOPHEN INJECTION 100 ML IVPB ONE (20:01)
[2022-03-22] MEDS ORDERED: ONDANSETRON 4 MG/2 ML VIAL ONE ×2 (20:01→22:35)
[2022-03-22 20:37] LABS: ALBUMIN 3.8 g/dl (3.4-5.0); BILIRUBIN,TOTAL 0.5 mg/dl (0.2-1); CALCIUM 8.6 mg/dl (8.5-10); CREATININE 0.7 mg/dl (0.55-1.3); TOT PROT 6.6 g/dl (6.4-8.2)
[2022-03-22 20:37] LABS: HEMATOCRIT 38.5 % (32.4-45.2); HEMOGLOBIN 13.6 G/dL (10.7-15.3); MCH 31.3 pg (25.7-33.7); MCHC 35.3 g/dl (32.0-36.0); MEAN CELL VOLUME 88.5 fl (80-96); MEAN PLT VOLUME 6.5 fl (7.5-11.1); PLATELET COUNT 320.4 10^3/uL (134-434); RBC 4.35 10^6/uL (3.60-5.2); WHITE BLOOD COUNT 5.7 10^3/uL (4.0-10.8)
[2022-03-22] MEDS ORDERED: KETOROLAC TROMETHAMINE 30 MG/1 ML VIAL IVPUSH ONE (21:26)
[2022-03-22] MEDS ORDERED: KETOROLAC TROMETHAMINE 30 MG/1 ML VIAL ONE (21:44)
[2022-03-22] MEDS ORDERED: CEFUROXIME AXETIL 500 MG TABLET ONE (22:54)
[2022-03-22] MEDS ORDERED: TRIMETHOBENZAMIDE HCL 200MG/2ML INJ IM ONE ×2 (23:08→23:13)
[2022-03-22 23:42] LABS: PLATELET ESTIMATE ADEQUATE
== END 2022-03-22 23:24 | disposition home or self-care (01) ==
LOC: FER 19:11
PROC: 3E023GC Introduction of Other Therapeutic Substance into Muscle, Percutaneous Approach (ICD-10-PCS; principal; 2022-03-22)
PROC: 3E033GC Introduction of Other Therapeutic Substance into Peripheral Vein, Percutaneous Approach (ICD-10-PCS; principal; 2022-03-22)
DX: J01.90 Acute sinusitis, unspecified (principal); K52.9 Noninfective gastroenteritis and colitis, unspecified
CPT/HCPCS: 0241U-QW; 36415; 80053; 84703; 85027; 99284-25